=== PATIENT | male | born 1955 | race Caucasian/White ===

== ENCOUNTER 2019-08-22 05:57 | Inpatient (IN) | payer BC ==
[~2019-08-22] VITALS: Ht 167.6 cm; Wt 102.0 kg
[2019-08-22] MEDS ORDERED: ipratropium/albuterol 3ml nebule NEB ONE (06:25)
[2019-08-22 06:43] LABS: BASOPHILS % (AUTO) 0.5 % (0-1); EOSINOPHILS # (AUTO) 0.1 X10'3 (0-0.9); EOSINOPHILS % (AUTO) 1.5 % (0-6); HEMATOCRIT 38.3 % (42.0-52.0); HEMOGLOBIN 12.7 g/dl (14.0-17.9); LYMPHOCYTES # (AUTO) 1.1 X10'3 (1.1-4.8); LYMPHOCYTES % (AUTO) 16.5 % (21-51); MEAN CORPUSCULAR HEMOGLOBIN 31.4 PG (27.0-31.0); MEAN CORPUSCULAR HGB CONC 33.1 g/dL (33.0-36.5); MEAN CORPUSCULAR VOLUME 94.9 FL (78-98); MEAN PLATELET VOLUME 9.4 FL (7.4-10.4); MONOCYTES # (AUTO) 0.4 X10'3 (0-0.9); MONOCYTES % (AUTO) 5.8 % (2-12); NEUTROPHILS # (AUTO) 5.1 X10'3 (1.8-7.7); NEUTROPHILS % (AUTO) 75.7 % (42-75); PLATELET COUNT 169 X10'3 (140-440); RED BLOOD COUNT 4.04 X10'6 (4.70-6.10); RED CELL DISTRIBUTION WIDTH 14.3 % (11.5-14.5); WHITE BLOOD COUNT 6.7 X10'3 (4.5-11.0)
--- NOTE | 2019-08-22 06:53 | NUR ---
RT tx in progress.
[2019-08-22 06:55] LABS: ALANINE AMINOTRANSFERASE 40 U/L (12-78); ALBUMIN 4.1 G/DL (3.4-5.0); ALKALINE PHOSPHATASE 65 IU/L (46-116); ANION GAP 12 (8-16); BILIRUBIN,TOTAL 0.7 MG/DL (0.1-1.0); BLOOD UREA NITROGEN 16 MG/DL (7-18); CALCIUM 9.7 MG/DL (8.5-10.1); CHLORIDE 104 MMOL/L (99-107); CREATININE 1.14 MG/DL (0.60-1.10); GLUCOSE 120 MG/DL (70-104); PARTIAL THROMBOPLASTIN TIME 28 SECONDS (22-32); SODIUM 139 MMOL/L (135-145); TOTAL CARBON DIOXIDE 23.2 MMOL/L (24-32); TOTAL PROTEIN 8.4 G/DL (6.4-8.2); eGFR 65 ML/MIN
[2019-08-22] MEDS ORDERED: furosemide 10 MG/1 ML 10ml inj IV ONE (07:00)
[2019-08-22 07:07] LABS: ASPARTATE AMINO TRANSFERASE 38 U/L (10-37); POTASSIUM 4.9 MMOL/L (3.5-5.1)
--- NOTE | 2019-08-22 07:20 | NUR ---
Vascular in progress
[2019-08-22] MEDS ORDERED: MULT-1172 PO (07:28)
[2019-08-22] MEDS ORDERED: iohexol 350MG/ML 100ml bottle IV ONE (07:44)
[2019-08-22] MEDS ORDERED: nitroGLYCERIN 0.4mg SUBLingual tab SL PRN (07:55)
[2019-08-22] MEDS ORDERED: HYDROcodone/acetaminophen 5mg/325mg tablet PO PRN (07:55)
[2019-08-22] MEDS ORDERED: magnesium hydroxide 30ml (MOM) UD suspension PO PRN (07:55)
[2019-08-22] MEDS ORDERED: mag hydrox/Alum hydrox/simeth 30ml oral suspension PO PRN (07:55)
[2019-08-22] MEDS ORDERED: morphine 2 MG/ML inj. syringe IV PRN ×2 (07:55)
[2019-08-22] MEDS ORDERED: ondansetron/PF 4mg/2ml inj IV PRN (07:55)
[2019-08-22] MEDS: furosemide 40mg/4ml inj IV SCH ×2 (08:00→22:55)
--- NOTE | 2019-08-22 08:02 | NUR ---
Patient out to CT
[2019-08-22] MEDS: metoprolol tartrate 50mg tablet PO SCH ×2 (08:14→22:55)
[2019-08-22] MEDS: nitroGLYCERIN 0.2mg/hour patch TD SCH (08:14)
[2019-08-22] MEDS: enoxaparin 40mg/0.4ml syringe SUBCUT SCH (08:17)
[2019-08-22 08:44] LABS: HEMOGLOBIN A1C 5.4 % (4.5-6.2)
[2019-08-22] MEDS: acetaminophen 325mg tablet PO PRN ×2 (10:20→16:22)
--- NOTE | 2019-08-22 10:40 | NUR ---
Patient arrived to [place] [id number] at this time. I have received report from YURI Barney and had the opportunity to ask questions and assume patient care.
[2019-08-22 10:45] VITALS: BP 160/110
[2019-08-22 11:00] VITALS: BP 160/110
--- NOTE | 2019-08-22 12:52 | NUR ---
PAGER ID: [phone] MESSAGE: [phone] Jaci Cifuentes BP 160/100. Do you want any PRNs? Jennifer ACCE [phone].
[2019-08-22] MEDS ORDERED: hydrALAZINE 20mg/ml inj. IV PRN (13:45)
[2019-08-22 15:00] VITALS: BP 160/106
[2019-08-22 18:00] VITALS: BP 146/84
--- NOTE | 2019-08-22 18:17 | NUR ---
Problems reprioritized. Patient report given, questions answered & plan of care reviewed with YURI Barnes.
[2019-08-22 22:00] VITALS: BP 165/98
[2019-08-23 02:00] VITALS: BP 155/93
[2019-08-23] MEDS: acetaminophen 325mg tablet PO PRN (02:35)
[2019-08-23 02:36] LABS: BASOPHILS % (AUTO) 0.3 % (0-1); EOSINOPHILS # (AUTO) 0.1 X10'3 (0-0.9); EOSINOPHILS % (AUTO) 1.2 % (0-6); HEMATOCRIT 37.5 % (42.0-52.0); HEMOGLOBIN 12.7 g/dl (14.0-17.9); LYMPHOCYTES # (AUTO) 1.4 X10'3 (1.1-4.8); LYMPHOCYTES % (AUTO) 14.8 % (21-51); MEAN CORPUSCULAR HEMOGLOBIN 31.7 PG (27.0-31.0); MEAN CORPUSCULAR HGB CONC 33.9 g/dL (33.0-36.5); MEAN CORPUSCULAR VOLUME 93.4 FL (78-98); MEAN PLATELET VOLUME 9.1 FL (7.4-10.4); MONOCYTES # (AUTO) 0.7 X10'3 (0-0.9); MONOCYTES % (AUTO) 7.4 % (2-12); NEUTROPHILS # (AUTO) 7.4 X10'3 (1.8-7.7); NEUTROPHILS % (AUTO) 76.3 % (42-75); PLATELET COUNT 203 X10'3 (140-440); RED BLOOD COUNT 4.01 X10'6 (4.70-6.10); RED CELL DISTRIBUTION WIDTH 14.2 % (11.5-14.5); WHITE BLOOD COUNT 9.6 X10'3 (4.5-11.0)
[2019-08-23 02:44] LABS: ALBUMIN 4.1 G/DL (3.4-5.0); ANION GAP 10 (8-16); BLOOD UREA NITROGEN 18 MG/DL (7-18); BUN/CREATININE RATIO 15.5 (5.4-32.0); CALCIUM 9.7 MG/DL (8.5-10.1); CHLORIDE 104 MMOL/L (99-107); CHOL/HDL RATIO 5.2 (0.00-4.99); CHOLESTEROL 131 MG/DL (0-200); CREATININE 1.16 MG/DL (0.60-1.10); GLUCOSE 114 MG/DL (70-104); HDL CHOLESTEROL 25 MG/DL (35-60); LDL CHOLESTEROL 59 MG/DL (50-100); POTASSIUM 4.1 MMOL/L (3.5-5.1); SODIUM 141 MMOL/L (135-145); TOTAL CARBON DIOXIDE 27.4 MMOL/L (24-32); TRIGLYCERIDES 325 MG/DL (20-135); eGFR 64 ML/MIN
[2019-08-23 06:00] VITALS: BP 161/97
[2019-08-23] MEDS: nitroGLYCERIN 0.2mg/hour patch TD SCH (08:00)
[2019-08-23] MEDS ORDERED: sacubitril/valsartan 24mg-26mg tablet PO SCH (08:05)
[2019-08-23] MEDS ORDERED: FURO-149 PO (08:30)
[2019-08-23] MEDS ORDERED: METO50TA16 PO (08:30)
[2019-08-23] MEDS ORDERED: SACU1TAB PO (08:30)
[2019-08-23 10:20] VITALS: BP_SYST 170
[2019-08-23] MEDS: enoxaparin 40mg/0.4ml syringe SUBCUT SCH (10:20)
[2019-08-23] MEDS: furosemide 40mg/4ml inj IV SCH (10:20)
[2019-08-23] MEDS: metoprolol tartrate 50mg tablet PO SCH (10:20)
--- NOTE | 2019-08-23 12:00 | NUR ---
pt. discharged from facility at 1104. pt. refused escort down to private vehicle. He walked down with his and daughter. pt. understood and signed all paperwork. pt. IV was d/c intact. all new medications were faxed to [facility] on [address] pt. left with all belongings.
== END 2019-08-23 11:04 | disposition home or self-care (01) | DRG 682 ==
LOC: ER 05:58 → ED HOLD 07:55 → MED 3N 10:50
PROVIDERS: ADMIT Internal Medicine; ATTEND Internal Medicine
PROC: B32T1ZZ Computerized Tomography (CT Scan) of Left Pulmonary Artery using Low Osmolar Contrast (ICD-10-PCS; principal; 2019-08-22)
PROC: B3201ZZ Computerized Tomography (CT Scan) of Thoracic Aorta using Low Osmolar Contrast (ICD-10-PCS; 2019-08-22)
PROC: B32S1ZZ Computerized Tomography (CT Scan) of Right Pulmonary Artery using Low Osmolar Contrast (ICD-10-PCS; 2019-08-22)
DX: N17.9 Acute kidney failure, unspecified (principal); I50.21 Acute systolic (congestive) heart failure; F12.90 Cannabis use, unspecified, uncomplicated; I11.0 Hypertensive heart disease with heart failure; Z82.49 Family history of ischemic heart disease and other diseases of the circulatory system; Z87.891 Personal history of nicotine dependence
CPT/HCPCS: 36415; 71045; 71275; 80048; 80053; 80061; 83036; 83880; 84484; 85025; 85379; 85610; 85730; 87081; 93005; 93306; 93970; 94640; 94760; 96374; 99285; G0378; J0360; J1650; J1940; Q9967

== ENCOUNTER 2022-03-17 08:05 | Emergency (ER) | payer BC, MEDICARE, OTHER ==
[~2022-03-17] VITALS: Ht 167.6 cm; Wt 81.8 kg
[~2022-03-17 08:05] MED LIST: FURO-149 PO; METO50TA16 PO; MULT-1172 PO; SACU1TAB PO
[2022-03-17] MEDS ORDERED: morphine 4 MG/ML inj SYRINge IM ONE (09:10)
[2022-03-17] MEDS ORDERED: FENO145T38 PO (12:40)
[2022-03-17] MEDS ORDERED: ISOS30TA9 PO (12:40)
--- NOTE | 2022-03-17 12:45 | NUR ---
DOREEN CRUZ AT [facility] . INFORMATION GIVEN TO TRANSFER CENTER AND THEY WILL CALL BACK IF PATIENT IS ACCEPTED.
[2022-03-17] MEDS ORDERED: normal saline 1000ml 1,000 ML IV ONE (12:55)
--- NOTE | 2022-03-17 13:01 | NUR ---
ATTEMPT EKG, PRIMARY RN AT BEDSIDE GETTING LABS NEEDED FOR TRANSFER. WILL ATTEMPT AGAIN.
[2022-03-17 13:30] LABS: BASOPHILS % (AUTO) 0.1 % (0-1); EOSINOPHILS % (AUTO) 0.2 % (0-6); HEMATOCRIT 38.4 % (42.0-52.0); HEMOGLOBIN 12.7 g/dl (14.0-17.9); LYMPHOCYTES # (AUTO) 0.7 X10'3 (1.1-4.8); LYMPHOCYTES % (AUTO) 7.1 % (21-51); MEAN CORPUSCULAR HEMOGLOBIN 28.5 PG (27.0-31.0); MEAN CORPUSCULAR VOLUME 86.4 FL (78-98); MEAN PLATELET VOLUME 9.3 FL (7.4-10.4); MONOCYTES # (AUTO) 0.4 X10'3 (0-0.9); MONOCYTES % (AUTO) 3.3 % (2-12); NEUTROPHILS # (AUTO) 9.4 X10'3 (1.8-7.7); NEUTROPHILS % (AUTO) 89.3 % (42-75); PLATELET COUNT 242 X10'3 (140-440); RED BLOOD COUNT 4.44 X10'6 (4.70-6.10); RED CELL DISTRIBUTION WIDTH 13.8 % (11.5-14.5); WHITE BLOOD COUNT 10.5 X10'3 (4.5-11.0)
[2022-03-17 13:39] LABS: ALANINE AMINOTRANSFERASE 19 U/L (12-78); ALBUMIN/GLOBULIN RATIO 0.9 (1.1-1.5); ALKALINE PHOSPHATASE 285 IU/L (46-116); ANION GAP 11 (8-16); ASPARTATE AMINO TRANSFERASE 36 U/L (10-37); BILIRUBIN,TOTAL 0.7 MG/DL (0.1-1.0); BLOOD UREA NITROGEN 37 MG/DL (7-18); BUN/CREATININE RATIO 30.6 (5.4-32.0); CALCIUM 10.2 MG/DL (8.5-10.1); CHLORIDE 102 MMOL/L (99-107); CREATININE 1.21 MG/DL (0.60-1.10); GLUCOSE 127 MG/DL (70-104); POTASSIUM 4.4 MMOL/L (3.5-5.1); SODIUM 137 MMOL/L (135-145); TOTAL CARBON DIOXIDE 24.1 MMOL/L (24-32); TOTAL PROTEIN 8.3 G/DL (6.4-8.2); eGFR 60 ML/MIN
[2022-03-17] MEDS ORDERED: morphine 4 MG/ML inj SYRINge IV ONE (14:15)
--- NOTE | 2022-03-17 18:46 | NUR ---
ASSUMED CARE OF PT. PT SITTING ON WHEELCHAIR HE FEELS MORE COMFORTABLE THERE. AT BEDSIDE. 'S, ONEL, PHONE NUMBER IS [phone]
--- NOTE | 2022-03-17 21:17 | NUR ---
REPORTED TO DR GENAO THAT PT IS IN PAIN.
[2022-03-17] MEDS ORDERED: morphine 4 MG/ML inj SYRINge IV PRN (21:20)
[2022-03-17] MEDS ORDERED: ondansetron/PF 4mg/2ml inj IV ONE (21:20)
--- NOTE | 2022-03-17 21:54 | NUR ---
PT STILL COMPLAINING OF PAIN. SPOKE TO DR GENAO. HE GAVE A VO FOR 75MCG OF [place]. ORDER REPEATED BACK FOR ACCURACY.
[2022-03-17] MEDS ORDERED: fentaNYL/PF 50MCG/1 ML 2ML syringe IV ONE (21:55)
--- NOTE | 2022-03-17 21:58 | NUR ---
PATIENT HAS BEEN ACCEPTED AT [facility] ROOM [address] MCINTYRE ROOM WILL NOT BE READY TILL 2330 SO I WILL BE ARRANGING FLIGHT AT 2330 WITH REACH
--- NOTE | 2022-03-17 23:37 | NUR ---
[facility] HAS ARRIVED. GIVEN REPORT TO FLIGHT [facility]W.
[2022-03-17 23:48] VITALS: BP 118/69
--- NOTE | 2022-03-17 23:48 | NUR ---
GAVE TELEPHONE REPORT TO DION WELCH, [facility]
== END 2022-03-17 23:53 ==
LOC: ER 08:06
DX: M48.56XG Collapsed vertebra, not elsewhere classified, lumbar region, subsequent encounter for fracture with delayed healing (principal); F12.10 Cannabis abuse, uncomplicated; Z20.822 Contact with and (suspected) exposure to COVID-19
CPT/HCPCS: 36415; 71045; 72131; 80053; 85025; 85610; 87635; 96361; 96372; 96374; 96375; 96376; 99285; C9803; J2270; J2405; J3010; J7030